=== PATIENT | male | born 1985 | race Caucasian/White ===

== ENCOUNTER 2021-04-05 20:22 | Inpatient (IN) | payer OTHER, SELFPAY ==
[~2021-04-05] VITALS: Ht 177.8 cm; Wt 80.0 kg
[2021-04-05 20:50] LABS: AMPHETAMINES LEVEL URINE NEGATIVE (NEGATIVE); BARBITURATES URINE NEGATIVE (NEGATIVE); BENZODIAZEPINES URINE NEGATIVE (NEGATIVE); CANNABINOIDS URINE NEGATIVE (NEGATIVE); COCAINE METABOLITE URINE NEGATIVE (NEGATIVE); METHADONE URINE NEGATIVE (NEGATIVE); OPIATES URINE NEGATIVE (NEGATIVE); PHENCYCLIDINE URINE NEGATIVE (NEGATIVE)
[2021-04-05 21:03] LABS: HEMATOCRIT 45.4 % (42.0-52.0); HEMOGLOBIN 15.2 g/dl (13.5-17.5); MEAN CORPUSCULAR HEMOGLOBIN 28.2 pg (27.0-33.0); MEAN CORPUSCULAR HGB CONC 33.5 g/dl (32.0-36.5); MEAN CORPUSCULAR VOLUME 84.2 fl (80.0-96.0); PLATELET COUNT, AUTOMATED 294 10^3/uL (150-450); RED BLOOD COUNT 5.39 10^6/uL (4.30-6.10); WHITE BLOOD COUNT 12.9 10^3/uL (4.0-10.0)
[2021-04-05 21:57] LABS: ACETAMINOPHEN LEVEL < 2.0 UG/ML (10.0-30.0); ALBUMIN 4.4 GM/DL (3.2-5.2); ALT/SGPT 55 U/L (12-78); BILIRUBIN,DIRECT 0.1 MG/DL (0.0-0.2); BILIRUBIN,TOTAL 0.4 MG/DL (0.2-1.0); BLOOD UREA NITROGEN 17 MG/DL (7-18); CARBON DIOXIDE LEVEL 21 MEQ/L (21-32); CHLORIDE LEVEL 110 MEQ/L (98-107); CREATININE FOR GFR 1.23 MG/DL (0.70-1.30); ETHYL ALCOHOL (ETHANOL) 0.078 % (0.000-0.010); GLOMERULAR FILTRATION RATE > 60.0 (>60); GLUCOSE, FASTING 86 MG/DL (70-100); POTASSIUM SERUM 3.7 MEQ/L (3.5-5.1); SALICYLATE LEVEL < 1.7 MG/DL (5.0-30.0); SODIUM LEVEL 144 MEQ/L (136-145); TOTAL PROTEIN 7.9 GM/DL (6.4-8.2)
[2021-04-05] MEDS ORDERED: OMEP-221 PO (23:41)
[2021-04-05] MEDS ORDERED: HOME MED LIST COMPLETE! XX SCH (23:45)
[2021-04-05 23:52] LABS: RSV AMPLIFICATION POSITIVE (NEGATIVE)
[2021-04-06] MEDS ORDERED: MAALOX 30 ML SUSP *UDC PO PRN
[2021-04-06] MEDS ORDERED: MOM 30ML SUSPENSION UDC PO PRN
[2021-04-06] MEDS ORDERED: ACETAMINOPHEN TAB 650MG DOSE (2X325MG) PO PRN
[2021-04-06] MEDS ORDERED: traZODone 50 MG TAB PO PRN
[2021-04-06 00:52] VITALS: BP 124/78
[2021-04-06] MEDS: OMEPRAZOLE 20 MG CAP PO SCH (11:05)
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
[2021-04-06] MEDS ORDERED: NICO7PA TD (15:03)
[2021-04-06 16:15] VITALS: BP 138/90
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
[2021-04-07 07:06] VITALS: BP 123/87
[2021-04-07] MEDS: OMEPRAZOLE 20 MG CAP PO SCH (10:18)
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
== END 2021-04-07 13:47 | disposition home or self-care (01) | DRG 775 ==
LOC: M ED 20:22 → M ED INP 04-06 → M PSY 04-06 00:36
PROVIDERS: ADMIT Psychiatry & Neurology Psychiatry; ATTEND Psychiatry & Neurology Psychiatry
DX: F10.14 Alcohol abuse with alcohol-induced mood disorder (principal); F17.290 Nicotine dependence, other tobacco product, uncomplicated; F60.3 Borderline personality disorder; R45.851 Suicidal ideations; Z91.51 Personal history of suicidal behavior; Z62.810 Personal history of physical and sexual abuse in childhood; Z20.822 Contact with and (suspected) exposure to COVID-19; Z63.0 Problems in relationship with spouse or partner; K21.9 Gastro-esophageal reflux disease without esophagitis; Z90.49 Acquired absence of other specified parts of digestive tract; Z79.899 Other long term (current) drug therapy